=== PATIENT | female | born 1960 | race Caucasian/White ===

== ENCOUNTER 2018-09-11 10:02 | Emergency (ER) | payer MEDICAID ==
[~2018-09-11] VITALS: Ht 160 cm; Wt 90.7 kg
[~2018-09-11 10:02] MED LIST: DIPH25CA39 PO; GEMF600T7 PO; HYDR-4683; IBU800T PO; NAPR500T31 PO; OXYB5TAB24 PO; PAROXETINE HCL PO; RABE20TA5 PO
[2018-09-11 10:15] VITALS: BP 119/58
[2018-09-11] MEDS ORDERED: KETOROLAC TROMETH 60MG/2ML VIAL IM ONE (11:15)
== END 2018-09-11 11:57 | disposition home or self-care (01) ==
LOC: ER 10:10
DX: M19.031 Primary osteoarthritis, right wrist (principal); M06.9 Rheumatoid arthritis, unspecified; M19.90 Unspecified osteoarthritis, unspecified site; J45.909 Unspecified asthma, uncomplicated; E11.9 Type 2 diabetes mellitus without complications; E78.5 Hyperlipidemia, unspecified; I10 Essential (primary) hypertension; Z90.49 Acquired absence of other specified parts of digestive tract; Z79.899 Other long term (current) drug therapy; Z90.710 Acquired absence of both cervix and uterus
CPT/HCPCS: 73110; 73130; 96372; 99283; J1885

== ENCOUNTER 2021-01-07 15:26 | Emergency (ER) | payer MEDICAID ==
[~2021-01-07] VITALS: Ht 165.1 cm; Wt 158.8 kg
[~2021-01-07 15:26] MED LIST changes: +GEMF-19 PO; -GEMF600T7 PO; -HYDR-4683; +HYDR-4833; +RABE20TA19 PO; -RABE20TA5 PO
[2021-01-07 19:12] VITALS: BP 135/81
== END 2021-01-07 19:13 | disposition home or self-care (01) ==
LOC: ER 15:26 → EDBD 15:26 → ER 19:13
DX: S09.90XA Unspecified injury of head, initial encounter (principal); M19.90 Unspecified osteoarthritis, unspecified site; M25.511 Pain in right shoulder; M25.562 Pain in left knee; M25.561 Pain in right knee; I10 Essential (primary) hypertension; E11.9 Type 2 diabetes mellitus without complications; E78.5 Hyperlipidemia, unspecified; J45.909 Unspecified asthma, uncomplicated; Z90.49 Acquired absence of other specified parts of digestive tract; Z90.710 Acquired absence of both cervix and uterus; Z79.1 Long term (current) use of non-steroidal anti-inflammatories (NSAID); Z79.899 Other long term (current) drug therapy; W19.XXXA Unspecified fall, initial encounter; Y93.89 Activity, other specified; Y92.89 Other specified places as the place of occurrence of the external cause; Y99.8 Other external cause status
CPT/HCPCS: 70450; 72125; 73030; 73562

== ENCOUNTER 2021-06-11 14:33 | Emergency (ER) | payer MEDICAID ==
[~2021-06-11] VITALS: Ht 167.6 cm; Wt 90.7 kg
[2021-06-11] MEDS ORDERED: ACETAMINOPHEN 325 MG TAB PO ONE (19:45)
[2021-06-11 22:32] LABS: Basophils # (auto) 0.1 10 ^3/uL (0-0.2); Eosinophils # (auto) 0.1 10 ^3/uL (0-0.8); Hematocrit 26.9 % (36.0-46.0); Hemoglobin 8.2 g/dL (12.2-16.2); Lymphocytes # (auto) 2.3 10 ^3/uL (0.4-5.4); Mean Corpuscular Hemoglobin 19.9 pg (28.0-32.0); Neutrophils # (auto) 4.9 10 ^3/uL (1.6-8.6); Red Cell Distribution Width 18.1 % (11.8-14.3)
[2021-06-11 22:34] LABS: Albumin 3.4 g/dL (3.4-5.0); Calcium 8.5 mg/dL (8.5-10.1); Potassium 3.1 mmol/L (3.5-5.1)
[2021-06-11 22:35] LABS: Basophils % (auto) 1.1 % (0.0-2.0); Eosinophils % (auto) 1.3 % (0.0-7.0); Lymphocytes % (auto) 28.9 % (10.0-50.0); Mean Corpuscular Hgb Conc. 30.4 g/dL (32.0-36.0); Mean Corpuscular Volume 65.5 fL (80.0-100.0); Monocytes # (auto) 0.5 10 ^3/uL (0-1.3); Monocytes % (auto) 5.8 % (0.0-12.0); Neutrophils % (auto) 62.9 % (37.0-80.0); White Blood Cell 7.9 10^3/uL (4.4-10.8)
[2021-06-11 22:39] LABS: BUN/Creatinine Ratio 23.3; Bilirubin, Total 0.5 mg/dL (0.2-1.0); Total Protein 6.6 g/dL (6.4-8.2)
[2021-06-11] MEDS ORDERED: POTASSIUM EFFERVESENT TAB 25 MEQ PO ONE (23:30)
[2021-06-11] MEDS ORDERED: POTASSIUM CHL 20MEQ/50ML 50 ML IV ONE (23:30)
[2021-06-12] MEDS ORDERED: PROPOFOL 100 ML IV ONE (08:46)
[2021-06-12] MEDS ORDERED: PROPOFOL 10 MG/ML 20 ML IV ONE (09:00)
[2021-06-12] MEDS ORDERED: OXYCODONE W/ ACETAMINOPHEN 5/325MG TABLET PO ONE ×2 (13:30→18:15)
[2021-06-12] MEDS ORDERED: METOPROLOL TARTRATE 50 MG TAB PO ONE (16:45)
[2021-06-13] MEDS ORDERED: IBUPROFEN 800 MG TAB PO ONE (17:15)
[2021-06-15 17:57] VITALS: BP 148/82
== END 2021-06-15 18:00 | disposition home or self-care (01) ==
LOC: EDBD 14:33 → ER 14:33
DX: M24.411 Recurrent dislocation, right shoulder (principal); R45.851 Suicidal ideations; M25.562 Pain in left knee; M25.561 Pain in right knee; E87.6 Hypokalemia; E11.9 Type 2 diabetes mellitus without complications; E78.5 Hyperlipidemia, unspecified; I10 Essential (primary) hypertension; Z90.49 Acquired absence of other specified parts of digestive tract; Z90.710 Acquired absence of both cervix and uterus; Z20.822 Contact with and (suspected) exposure to COVID-19
CPT/HCPCS: 23650; 36415; 71045; 73020; 73030; 73200; 73560; 80053; 84132; 85025; 87426; 93005; J2704

== ENCOUNTER 2021-08-06 21:13 | Emergency (ER) | payer MEDICAID ==
[~2021-08-06] VITALS: Ht 167.6 cm; Wt 113.4 kg
[2021-08-07 03:49] VITALS: BP 113/64
[2021-08-07] MEDS ORDERED: cefTRIAXone SOD 1,000 MG VL ONE (12:37)
== END 2021-08-07 05:06 | disposition home or self-care (01) ==
LOC: EDBD 21:13 → ER 21:17
DX: M25.561 Pain in right knee (principal); M25.562 Pain in left knee; J45.909 Unspecified asthma, uncomplicated; E11.9 Type 2 diabetes mellitus without complications; E78.5 Hyperlipidemia, unspecified; I10 Essential (primary) hypertension; Z90.49 Acquired absence of other specified parts of digestive tract; Z90.710 Acquired absence of both cervix and uterus; Z76.5 Malingerer [conscious simulation]
CPT/HCPCS: J0696

== ENCOUNTER 2021-08-07 08:08 | Emergency (ER) | payer MEDICAID ==
[~2021-08-07] VITALS: Ht 167.6 cm; Wt 90.7 kg
[2021-08-07 09:55] LABS: Amphetamine Screen, Urine NEGATIVE (NEGATIVE); Barbiturate Scree,Urine NEGATIVE (NEGATIVE); Benzodiazephine Screen, Urine NEGATIVE (NEGATIVE); Cannabinoid Screen, Urine POSITIVE (NEGATIVE); Cocaine Screen, Urine NEGATIVE (NEGATIVE); Opiate Scree,Urine POSITIVE (NEGATIVE); Phencyclidine Screen, Urine NEGATIVE (NEGATIVE)
[2021-08-07 09:59] LABS: Urine Bacteria MANY /hpf (None Seen); Urine Blood Negative /uL (Negative); Urine Mucus FEW (None Seen); Urine Specific Gravity 1.036 (1.001-1.035); Urine WBC 63 /hpf (0 - 5)
[2021-08-07] MEDS ORDERED: cefTRIAXone W LIDOCAINE 1 GM IM IM ONE (12:15)
[2021-08-07] MEDS ORDERED: cefTRIAXone SOD 1,000 MG VL ONE (12:43)
[2021-08-07] MEDS ORDERED: traMADol HCL 50 MG TAB PO ONE (21:30)
[2021-08-07] MEDS ORDERED: QUEtiapine FUMARATE 25 MG TAB PO SCH (22:00)
[2021-08-07] MEDS: CELECOXIB 100 MG CAP PO SCH (22:08)
[2021-08-07] MEDS: risperiDONE 1 MG TAB PO SCH (22:08)
[2021-08-08] MEDS ORDERED: SERTRALINE HCL 50 MG TAB PO SCH (07:00)
[2021-08-08 07:28] VITALS: BP 158/64
[2021-08-08] MEDS ORDERED: PANTOPRAZOLE 40 MG TAB PO ONE (09:15)
[2021-08-08] MEDS: risperiDONE 1 MG TAB PO SCH (10:07)
[2021-08-08] MEDS: CELECOXIB 100 MG CAP PO SCH (10:25)
== END 2021-08-07 11:13 | disposition home or self-care (01) ==
LOC: ER 08:08
DX: R45.851 Suicidal ideations (principal); N39.0 Urinary tract infection, site not specified; I10 Essential (primary) hypertension; E11.9 Type 2 diabetes mellitus without complications; J45.909 Unspecified asthma, uncomplicated; Z90.49 Acquired absence of other specified parts of digestive tract; Z90.710 Acquired absence of both cervix and uterus
CPT/HCPCS: 80307; 81001; 96372; 99284; J0696

== ENCOUNTER 2021-08-27 18:09 | Emergency (ER) | payer MEDICAID ==
[~2021-08-27] VITALS: Ht 162.6 cm; Wt 90.7 kg
[2021-08-27] MEDS ORDERED: HYDROcodone-ACET 10/325MG TAB PO ONE (18:30)
[2021-08-27] MEDS ORDERED: KETOROLAC TROMETH 60MG/2ML VIAL IM ONE (18:30)
[2021-08-27 20:20] VITALS: BP 139/81
== END 2021-08-27 22:23 | disposition home or self-care (01) ==
LOC: EDBD 18:09 → EDUNIT# 18:09 → ER 18:11
DX: M24.411 Recurrent dislocation, right shoulder (principal); J45.909 Unspecified asthma, uncomplicated; E11.9 Type 2 diabetes mellitus without complications; E78.5 Hyperlipidemia, unspecified; I10 Essential (primary) hypertension; Z90.49 Acquired absence of other specified parts of digestive tract; Z90.710 Acquired absence of both cervix and uterus; Z59.00 Homelessness unspecified
CPT/HCPCS: 96372; 99283; J1885